=== PATIENT | female | born 1945 | race Caucasian/White ===

== ENCOUNTER 2023-05-20 05:53 | Day surgery (SDC) | payer OTHER, SELFPAY ==
[2023-05-15 07:53] VITALS: BMI 31.5
[2023-05-15 08:48] LABS: % Eosinophils 2.4 % (0-6); % Immature Granulocytes 0.3 % (0-0.5); % Lymphocytes 21.2 % (20.5-51.1); % Monocytes 7.4 % (1.7-9.3); % Neutrophils 67.7 % (42.2-75.2); Absolute Basophils 0.1 10^3/uL (0-0.2); Absolute Eosinophils 0.2 10^3/uL (0-0.7); Absolute Lymphocytes 1.5 10^3/uL (1.2-3.4); Absolute Monocytes 0.5 10^3/uL (0.1-0.6); Absolute Neutrophils 4.8 10^3/uL (1.4-6.5); Hematocrit 41.4 % (37.0-47.0); Hemoglobin 13.6 g/dL (12.0-16.0); Mean Corp Hgb Conc. 32.9 g/dL (33.0-37.0); Mean Corpuscular Hgb 28.2 pg (27.0-31.0); Mean Corpuscular Volume 85.7 fL (81.0-99.0); Mean Platelet Volume 8.7 fL (7.4-10.4); Nucleated Red Blood Cells % 0 %; Platelet Count 294 10^3/uL (130-400); Red Blood Cell Count 4.83 10^6/uL (4.20-5.40); Red Cell Dist. Width 13.5 % (11.5-14.5); White Blood Cell Count 7.1 10^3/uL (4.8-10.8)
[2023-05-15 08:52] LABS: INR 1.07
[2023-05-15 08:56] LABS: ALT (SGPT) 21 U/L (0-35); AST (SGOT) 25 U/L (14-36); Albumin 4.3 g/dl (3.5-5.0); Alkaline Phosphatase 69 U/L (38-126); Blood Urea Nitrogen 12 mg/dl (7-17); Calcium 9.9 mg/dl (8.4-10.2); Carbon Dioxide 28 mmol/L (22-30); Chloride 103 mmol/L (98-107); Estimated Creatinine Clearance 66 ml/min; Glucose 106 mg/dl (70-99); Potassium 3.7 mmol/L (3.5-5.1); Sodium 140 mmol/L (135-145); Total Bilirubin 1.6 mg/dl (0.2-1.3); Total Protein 6.6 g/dl (6.3-8.2); eGFR > 60.00
[2023-05-20] VITALS (25 sets, daily range): BP systolic 110–171; BP diastolic 53–81; BMI 29.6
--- NOTE | 2023-05-20 07:47 | ITS.CL.ABL ---
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
Ablation
Procedure Report:
ELECTROPHYSIOLOGIC STUDY AND POSSIBLE ABLATION
DATE: 05/20/23
Primary Care Provider: Dr Jonah Swift
Primary watchstander: Dr Ric Hernadez
Director Of Neurology: Jonah Patton M.D.
INDICATION:
Symptomatic Atrial Fibrillation.
Paroxysmal
HISTORY: See H and P.
Symptomatic AF, poorly controlled with attempted medical therapy.
She has paroxysmal atrial fibrillation and atrial for flutter, symptomatic despite amiodarone.
-Echocardiogram March 12, 2023 demonstrates normal left ventricular size and function with estimated ejection fraction of 60 to 65% with mild LVH and stage II diastolic dysfunction. The left atrium is noted to be severely dilated, the right
atrium is noted to be dilated and there is mild mitral regurgitation. There is moderate tricuspid regurgitation with estimated pulmonary artery pressure 41 mmHg.
�������(Of note, echocardiogram approximately 1 year earlier from February 01, 2022 demonstrated normal left atrial and right atrial sizes.)
HAS-BLED: 2
Age
History of bleeding complications (hemarthrosis knees)
CHADSVASc: 4
HTN
Age
F Gender
PRESENTING RHYTHM: Paroxysmal atrial fibrillation
ANTIARRHYTHMIC DRUG: amiodarone
ANTICOAGULATION: Apixaban
'TIME-OUT': called and confirmed.
SEDATION/ANESTHESIA: provided via the anesthesia department using general anesthesia.
INTRAVENOUS/ARTERIAL ACCESS:
Right femoral venous - 8Fr ( up-sized for Arctic Front Flex Sheath - 15 Fr)
Left femoral venous - 7 Fr, 9 Fr,
PROCEDURE:
Ultrasound Guidance performed by pa was utilized for femoral venous Vascular Access b/l.
A decapolar CS catheter was placed within the CS for mapping and pacing.
The intracardiac ultrasound catheter was positioned in the RA. No TATIANA clot was seen and the LA/PV anatomy was defined. ICE was also used to identify the FO/IAS for targeting of transseptal puncture, assist in identification of the pulmonary vein
ostia, monitoring for PV ostial balloon occlusion using Doppler flow, and to monitor for mechanical injury.
Heparin bolus was administered prior to the transseptal puncture. Transeptal puncture was completed while monitoring intracardiac ultrasound, fluoroscopy and tip pressure. Left atrial catheter position was confirmed by pressure monitoring (RA mean
pressure 6 mm Hg and LA mean pressure 8 mm Hg), as well as fluoroscopy. The sheath was advanced over the dilator and positioned in the left atrium. Heparin was infused to target ACT at 300 -400 seconds throughout the case.
The multi-pole ring mapping catheter was positioned through the sheath into the LA and then the PV ostia were mapped. The 3-D electroanatomical map was created using [employer] [employer]. A 3-D reconstructed CT image was compared to the 3-D map to assist in
anatomic interpretation, mapping and ablation. Cryothermal energy was utilized for PV isolation to electrically isolate each PV ostia using the 28 mm Arctic Front balloon. All PVPs were eliminated at each vein demonstrating entrance block.
There are four independent pulmonary veins, LSPV, LIPV, RSPV and RIPV
After ostial isolation AF persisted and additional ablation lesions at the LSPV and RSPV were required to result in wide area circumferential ablation around the pulmonary vein sets.
Due to reduction in a compound motor action potential during cryoballoon ablation at the right inferior pulmonary vein which was not associated with loss of diaphragmatic contraction, lesion durations were limited to 90 seconds x 2 lesions at the
right inferior pulmonary vein.
An esophageal temperature probe was positioned at the level of the mid LA to delineate the course of the esophagus as well as monitor for any significant temperature changes during ablation. The temperature probe was repositioned to best correlate
to the level of ablation delivery. Elijah esophageal temperature is 34.8 �C and occurred during cryo-balloon application at the left inferior pulmonary vein.
Of note, during the case both paroxysmal atrial fibrillation and paroxysmal atrial flutter were observed. During episodes of atrial flutter mapping activation as well as entrainment mapping determined the tachycardia to be counterclockwise right
atrial flutter.
Once left atrial ablation was completed, cardioversion restored sinus rhythm. Mapping of the left atrium finds wide area circumferential ablation around both pulmonary vein sets with both entrance and exit block.
Next attention was turned to the right atrial flutter. RF ablation using a 4 mm irrigated tip contact sensing catheter was performed in sinus rhythm. Energy was delivered along the cavotricuspid isthmus at approximately 6:00 in the 30 degree BELGIAN
position. During RF energy delivery split potentials were noted along the line. Upon completion of the line differential pacing finds bidirectional block across the cavotricuspid isthmus line.
I.C.E. :
Pre-Ablation Post-Ablation
LVEF: 55 % 55 %
WMA: none none
Pericardial effusion: none none
Fluoroscopic exposure : 13.2 minutes, 44 mGy
COMPLICATIONS:
None
SUMMARY:
- Mapping and ablation to isolate the PVs
- Additional AF ablation set after PVI.
- Mapping and ablation of second tachycardia (right atrial counterclockwise CTI dependent flutter)
- 3-D Electroanatomical Mapping
- Intracardiac Ultrasound
- Ultrasound Guidance for Vascular Access.
Post ablation, I discussed today's findings and results with the patient's daughter, Dayana.
RECOMMENDATIONS:
- Observe in monitored bed.
- Maintain oral anticoagulation.
- Continue amiodarone for at least 3 months. If at 3-month follow-up visit sinus rhythm has been maintained, there can be consideration for stopping amiodarone.
- Office visit with Dr Ric Hernadez in 3 months.
- Continue cardiovascular care with Dr Ric Hernadez
Copy to:
Dr Jonah Swift
Dr Ric Hernadez
[2023-05-20 08:54] LABS: ACT-LR - POC 300 Seconds (116-155)
[2023-05-20 09:15] LABS: ACT-LR - POC 351 Seconds (116-155)
[2023-05-20 09:30] LABS: ACT-LR - POC 363 Seconds (116-155)
[2023-05-20] MEDS: ZOFRAN 4 MG IV (10:35)
[2023-05-20] MEDS: NSS 500 IV ×2 (15:56)
--- NOTE | 2023-05-20 17:24 | PTCARENOTE ---
Received patient at 1700 after discharge cancelled following PVI. Patient transferred from stretcher to the bathroom and voided qs. Requested to sit oob in the chair. Bilateral groin dressings are dry and intact with strong pedal pulses. Not
experiencing any dizziness while sitting oob in the chair. Oriented to the room and plan of care. Call parish within reach, ordering dinner, IV fluids infusing at 100ml/hr. Patient in SR at this time, will continue to monitor.
[2023-05-20] MEDS: ELIQUIS 5 MG PO (17:49)
[2023-05-20] MEDS: ANESTHETIC LOZENGE 1 LOZENGE PO (20:05)
[2023-05-20] MEDS: LIPITOR 10 MG PO (22:39)
[2023-05-20] MEDS: TYLENOL 650 MG PO (22:45)
--- NOTE | 2023-05-21 02:51 | PTCARENOTE ---
She has been oob in room without any c/o of dizziness. Groin sites wnl, some ecchymosis around right groin site. Monitor showing SB-SR, 58-70. Sleeping at present.
[2023-05-21 04:02] VITALS: BP 133/85
[2023-05-21 04:58] LABS: Hematocrit 35.3 % (37.0-47.0); Hemoglobin 11.9 g/dL (12.0-16.0); Mean Corp Hgb Conc. 33.7 g/dL (33.0-37.0); Mean Corpuscular Hgb 29.1 pg (27.0-31.0); Mean Corpuscular Volume 86.3 fL (81.0-99.0); Mean Platelet Volume 8.9 fL (7.4-10.4); Platelet Count 242 10^3/uL (130-400); Red Blood Cell Count 4.09 10^6/uL (4.20-5.40); Red Cell Dist. Width 13.5 % (11.5-14.5); White Blood Cell Count 11.9 10^3/uL (4.8-10.8)
[2023-05-21 05:22] LABS: Blood Urea Nitrogen 12 mg/dl (7-17); Calcium 9.2 mg/dl (8.4-10.2); Carbon Dioxide 23 mmol/L (22-30); Chloride 108 mmol/L (98-107); Estimated Creatinine Clearance 78 ml/min; Glucose 103 mg/dl (70-99); Sodium 136 mmol/L (135-145); eGFR > 60.00
[2023-05-21 07:52] VITALS: BP 121/66
--- NOTE | 2023-05-21 08:01 | W.PN.CARDCBS ---
Addendum entered and electronically signed by Kwame Luna MD 05/21/23 10:09:
Patient seen and examined
Agree with CLEAN UP WORKER note
Agree with CLEAN UP WORKER plan
Examination
HEENT normocephalic atraumatic
Bilateral groins are clean dry and intact
JVP 6
Cor regular
Telemetry sinus rhythm
Remainder of her exam per CLEAN UP WORKER note
77 y/o, presented with symptomatic AFib/Flutter, recurrent on amiodarone, [id number]=7, maintained on eliquis. Now s/p PVI, CTI RFA. Post procedure, she had persistent dizziness despite normal blood pressures, no orthostasis. She was given IV
fluids and stabilized overnight, has had no further dizziness.
IMPRESSION:
AFib/AFlutter
s/p PVI, CTI RFA, 05/20/23
HTN
HLD
Mild MR, mod TR
Fatty liver disease
Hyperparathyroidism, s/p subtotal parathyroidectomy (2021)
multinodular goiter
PLAN:
Tele- NSR w/PAC
bilat groin sites stable
no further dizziness- likely post anesthesia, resolved with fluids, rest
BP stable overnight, oob ambulating
Eliquis restarted last night
Continue amiodarone until EP followup
BP meds held overnight- will restart this morning
followup at [facility] arranged
home today
Original Note:
Today's Communication / Plan
-
Continue eliquis, amiodarone
resume BP meds
home today
Impression / Plan
-
PCP: Jonah Swift MD
CDY: Ric Hernadez MD
77 y/o, presented with symptomatic AFib/Flutter, recurrent on amiodarone, [id number]=9, maintained on eliquis. Now s/p PVI, CTI RFA. Post procedure, she had persistent dizziness despite normal blood pressures, no orthostasis. She was given IV
fluids and stabilized overnight, has had no further dizziness.
IMPRESSION:
AFib/AFlutter
s/p PVI, CTI RFA, 05/20/23
HTN
HLD
Mild MR, mod TR
Fatty liver disease
Hyperparathyroidism, s/p subtotal parathyroidectomy (2021)
multinodular goiter
PLAN:
Tele- NSR w/PAC
bilat groin sites stable
no further dizziness- likely post anesthesia, resolved with fluids, rest
BP stable overnight, oob ambulating
Eliquis restarted last night
Continue amiodarone until EP followup
BP meds held overnight- will restart this morning
followup at [facility] arranged
home today
Progress Note - Front Office Representative
Subjective
Date of Service: May 21, 2023
Denies cp/palps/dyspnea
post op dizziness now resolved
oob ambulating
groins without pain
Objective
Labs:
05/21/23 04:08
05/21/23 04:08
Labs
Hgb 11.9 g/dL (12.0-16.0) L 05/21/23 04:08
Hct 35.3 % (37.0-47.0) L 05/21/23 04:08
Plt Count 242 10^3/uL (130-400) 05/21/23 04:08
PT 14.0 Sec (11.4-14.6) 05/15/23 08:08
INR 1.07 05/15/23 08:08
Sodium 136 mmol/L (135-145) 05/21/23 04:08
Potassium 4.0 mmol/L (3.5-5.1) 05/21/23 04:08
BUN 12 mg/dl (7-17) 05/21/23 04:08
Creatinine 0.7 mg/dL (0.6-1.0) 05/21/23 04:08
Glucose 103 mg/dl (70-99) H 05/21/23 04:08
Vital Signs and I&O:
Vital Signs
Temp Pulse Resp BP Pulse Ox
98.0 F 55 18 133/85 96
05/21/23 04:03 05/21/23 07:00 05/21/23 04:03 05/21/23 04:02 05/21/23 04:03
Vital Signs
Temp Pulse Resp BP Pulse Ox
98.0 F 55 18 133/85 96
05/21/23 04:03 05/21/23 07:00 05/21/23 04:03 05/21/23 04:02 05/21/23 04:03
Intake & Output
05/19/23 05/20/23 05/21/23 05/22/23
06:59 06:59 06:59 06:59
Intake Total 1240 / 1240
Output Total 400 / 400
Balance 840 / 840
Physical Exam
Physical Exam
AAOx3, MAEE 5/5
RRR S1 S2 no murmurs
CTA bilat, non labored
soft abd, + bs
bilat groin sites without ht/bleeding, non tender
bilat extremities w/palpable distal pulses, no edema
[2023-05-21] MEDS: NORVASC 5 MG PO (08:22)
[2023-05-21] MEDS: ELIQUIS 5 MG PO (08:22)
[2023-05-21] MEDS: PACERONE 100 MG PO (08:23)
[2023-05-21] MEDS: ANESTHETIC LOZENGE 1 LOZENGE PO (08:23)
--- NOTE | 2023-05-21 09:10 | W.DS.TRANS ---
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
-
Discharge Instructions:
Sleep Apnea Risk Low
Discharge Diagnosis/Procedures AFib/AFlutter, s/p ablation
Diet Low Cholesterol
Driving Restrictions No driving for 24 hours
Instructions:
Stand-Alone Forms: DC Instructions- Cath/EP Lab
Changes to Home Medications: No
Discharge Medications:
DC Medications w/original date entered in Mtime
uunhozlf-yxu-mprti acid 0.4 mg-lycopene 300 mcg-lutein 250 mcg tablet (Centrum Silver) 1 tab PO DAILY Supplement 11/18/18
apixaban 5 mg tablet (Eliquis) 5 mg PO BID Blood clot prevention/tx 03/08/21
atorvastatin 10 mg tablet 10 mg PO HS High cholesterol 03/08/21
xtkcpzmvavy-bynqawqfb-wpc C-Mn 750 mg-600 mg-55 mg-5 mg tablet 2 tab PO DAILY arthritis 03/08/21
olmesartan 20 mg tablet 20 mg PO HS Blood pressure 03/08/21
amiodarone 100 mg tablet (Pacerone) 100 mg PO DAILY Arrhythmia 05/11/21
ascorbic acid (vitamin C) 500 mg tablet (Vitamin C) 500 mg PO DAILY Supplement 05/11/21
cholecalciferol (vitamin D3) 25 mcg (1,000 unit) capsule (Vitamin D3) 50 mcg PO DAILY Supplement 05/11/21
melatonin 5 mg tablet 5 mg PO HS PRN sleep 05/13/23
amlodipine 5 mg tablet 5 mg PO DAILY 05/21/23
Home Medication Changes
Pending Results: No
--- NOTE | 2023-05-21 11:06 | CM ---
spoke to pt in room, she is prev indep, lives with her daughter in a 2 story home with 2 steps to enter. she denies any dc planning needs or dme's. plan isf or dc to home today.
--- NOTE | 2023-05-21 11:20 | PTCARENOTE ---
D/C instructions given to patient, verbalizes understanding. INT D/C'd, telemetry D/C'd, personal belongings packed and set home with patient. D/C to home via wc accompanied by staff.
== END 2023-05-21 11:39 | disposition home or self-care (01) ==
LOC: CATH 05:53
PROVIDERS: Nurse Practitioner; ATTENDING PHYSICIAN Internal Medicine Cardiovascular Disease; FAMILY PHYSICIAN Family Medicine; OTHER PHYSICIAN Internal Medicine Cardiovascular Disease
DX: I48.0 Paroxysmal atrial fibrillation (principal); I48.92 Unspecified atrial flutter; E78.00 Pure hypercholesterolemia, unspecified; I08.1 Rheumatic disorders of both mitral and tricuspid valves; Z86.010 Personal history of colon polyps; E04.2 Nontoxic multinodular goiter; K76.0 Fatty (change of) liver, not elsewhere classified; G47.00 Insomnia, unspecified; E21.3 Hyperparathyroidism, unspecified; Z79.01 Long term (current) use of anticoagulants; E66.9 Obesity, unspecified; Z68.31 Body mass index [BMI] 31.0-31.9, adult
CPT/HCPCS: C1766; C1893; C1894; C1730; C2630; C1892; C1733; C1759; 36415; 75572; 76937; 80048; 80053; 83735; 85025; 85027; 85347; 85610; 86850; 86900; 86901; 93005; 93655; 93656; 93657; C1760; C1769; Q9967

== ENCOUNTER → 2023-06-21 12:25 | Outpatient (REF) | payer OTHER, SELFPAY | LOC: HWRAD 12:25 | PROVIDERS: ATTENDING PHYSICIAN Family Medicine | DX: M85.80 Other specified disorders of bone density and structure, unspecified site (principal); M54.50 Low back pain, unspecified | CPT/HCPCS: 72110; 77080 ==

== ENCOUNTER → 2023-07-01 10:51 | Outpatient (REF) | payer OTHER, SELFPAY | LOC: HWRAD 10:51 | PROVIDERS: ATTENDING PHYSICIAN Family Medicine | DX: I70.0 Atherosclerosis of aorta (principal) | CPT/HCPCS: 76770 ==

== ENCOUNTER → 2023-10-02 08:32 | Outpatient (REF) | payer OTHER, SELFPAY ==
[2023-10-02 12:27] LABS: ALT (SGPT) 18 U/L (0-35); AST (SGOT) 26 U/L (14-36); Albumin 4.4 g/dl (3.5-5.0); Alkaline Phosphatase 63 U/L (38-126); Blood Urea Nitrogen 13 mg/dl (7-17); Calcium 9.7 mg/dl (8.4-10.2); Carbon Dioxide 28 mmol/L (22-30); Chloride 105 mmol/L (98-107); Glucose 95 mg/dl (70-99); Sodium 140 mmol/L (135-145); Total Bilirubin 1.8 mg/dl (0.2-1.3); Total Protein 6.6 g/dl (6.3-8.2); eGFR > 60.00
[2023-10-02 12:39] LABS: Free T4 1.14 ng/dl (0.78-2.19); Intact PTH 59.5 pg/ml (13.6-85.8); Vitamin D, 25-OH*** 58.5 ng/mL (30-80)
== END ==
LOC: HWLAB 08:32
PROVIDERS: ATTENDING PHYSICIAN Internal Medicine Endocrinology, Diabetes & Metabolism; FAMILY PHYSICIAN Family Medicine
DX: M81.0 Age-related osteoporosis without current pathological fracture (principal); E83.52 Hypercalcemia; E34.9 Endocrine disorder, unspecified; E55.9 Vitamin D deficiency, unspecified
CPT/HCPCS: 36415; 80053; 82306; 83970; 84439; 84443

== ENCOUNTER → 2023-11-22 08:02 | Outpatient (REF) | payer OTHER, SELFPAY | LOC: HWRAD 08:02 | PROVIDERS: ATTENDING PHYSICIAN Internal Medicine Endocrinology, Diabetes & Metabolism; FAMILY PHYSICIAN Family Medicine | DX: M81.0 Age-related osteoporosis without current pathological fracture (principal); E04.2 Nontoxic multinodular goiter | CPT/HCPCS: 76536 ==

== ENCOUNTER → 2024-02-11 09:49 | Outpatient (REF) | payer OTHER, SELFPAY | LOC: HWWDC 09:49 | PROVIDERS: ATTENDING PHYSICIAN Family Medicine; REFERRING PHYSICIAN Obstetrics & Gynecology | DX: Z12.31 Encounter for screening mammogram for malignant neoplasm of breast (principal) | CPT/HCPCS: 77063; 77067 ==

== ENCOUNTER → 2024-07-23 08:20 | Outpatient (REF) | payer OTHER, SELFPAY | LOC: HWRAD 08:20 | PROVIDERS: ATTENDING PHYSICIAN Obstetrics & Gynecology; FAMILY PHYSICIAN Family Medicine | DX: N95.1 Menopausal and female climacteric states (principal) | CPT/HCPCS: 76830; 76856 ==

== ENCOUNTER → 2024-08-05 09:58 | Outpatient (REF) | payer OTHER, SELFPAY ==
[2024-08-05 12:26] LABS: % Eosinophils 1.8 % (0-6); % Immature Granulocytes 0.2 % (0-0.5); % Lymphocytes 37.2 % (20.5-51.1); % Monocytes 9.1 % (1.7-9.3); % Neutrophils 50.7 % (42.2-75.2); Absolute Basophils 0.1 10^3/uL (0-0.2); Absolute Eosinophils 0.1 10^3/uL (0-0.7); Absolute Lymphocytes 1.9 10^3/uL (1.2-3.4); Absolute Monocytes 0.5 10^3/uL (0.1-0.6); Absolute Neutrophils 2.5 10^3/uL (1.4-6.5); Hematocrit 42.1 % (37.0-47.0); Hemoglobin 13.8 g/dL (12.0-16.0); Mean Corp Hgb Conc. 32.8 g/dL (33.0-37.0); Mean Corpuscular Hgb 28.6 pg (27.0-31.0); Mean Corpuscular Volume 87.3 fL (81.0-99.0); Mean Platelet Volume 9.1 fL (7.4-10.4); Nucleated Red Blood Cells % 0 %; Platelet Count 254 10^3/uL (130-400); Red Blood Cell Count 4.82 10^6/uL (4.20-5.40); Red Cell Dist. Width 13.2 % (11.5-14.5)
[2024-08-05 12:40] LABS: ALT (SGPT) 19 U/L (0-35); AST (SGOT) 26 U/L (14-36); Albumin 4.7 g/dl (3.5-5.0); Alkaline Phosphatase 69 U/L (38-126); Blood Urea Nitrogen 15 mg/dl (7-17); Calcium 9.9 mg/dl (8.4-10.2); Carbon Dioxide 29 mmol/L (22-30); Chloride 104 mmol/L (98-107); Glucose 102 mg/dl (70-99); HDL Cholesterol 54 mg/dl; LDL Cholesterol, Calculated 60 mg/dl; Potassium 4.1 mmol/L (3.5-5.1); Sodium 142 mmol/L (135-145); Total Bilirubin 1.7 mg/dl (0.2-1.3); Total Cholesterol 137 mg/dl (50-199); Total Protein 6.8 g/dl (6.3-8.2); Triglyceride 117 mg/dl (10-149); Very Low Density Lipoprotein 23 mg/dl (0-30); eGFR > 60.00
[2024-08-05 12:49] LABS: Vitamin D, 25-OH*** 55.5 ng/mL (30-80)
== END ==
LOC: HWLAB 09:58
PROVIDERS: ATTENDING PHYSICIAN Internal Medicine Endocrinology, Diabetes & Metabolism; FAMILY PHYSICIAN Family Medicine
DX: M81.0 Age-related osteoporosis without current pathological fracture (principal); E04.2 Nontoxic multinodular goiter; E55.9 Vitamin D deficiency, unspecified; E78.00 Pure hypercholesterolemia, unspecified; Z79.01 Long term (current) use of anticoagulants
CPT/HCPCS: 36415; 80053; 80061; 82306; 85025

== ENCOUNTER → 2024-09-22 20:56 | Outpatient (REF) | payer OTHER, SELFPAY | LOC: MRI 3T 20:56 | PROVIDERS: ATTENDING PHYSICIAN Family Medicine | DX: M54.32 Sciatica, left side (principal) | CPT/HCPCS: 72148 ==

== ENCOUNTER → 2025-01-06 08:06 | Outpatient (REF) | payer OTHER, SELFPAY | LOC: RAD 08:06 | PROVIDERS: ATTENDING PHYSICIAN Family Medicine | DX: R11.0 Nausea (principal); R10.84 Generalized abdominal pain; K59.09 Other constipation | CPT/HCPCS: 74177; Q9967 ==

== ENCOUNTER → 2025-01-08 09:31 | Outpatient (REF) | payer OTHER, SELFPAY ==
[2025-01-08 12:16] LABS: Urine Character Slightly Cloudy (Clear)
[2025-01-08 12:40] LABS: Urine Squamous Cell 26-30 /LPF (Few)
[2025-01-08 12:41] LABS: Urine Red Blood Cell 0-2 /HPF (0-2); Urine White Cell 60-70 /HPF (0-5)
== END ==
LOC: HWLAB 09:31
PROVIDERS: ATTENDING PHYSICIAN Family Medicine
DX: N39.0 Urinary tract infection, site not specified (principal)
CPT/HCPCS: 81003; 81015; 87077; 87086; 87186

== ENCOUNTER → 2025-01-28 09:37 | Outpatient (REF) | payer OTHER, SELFPAY ==
[2025-01-28 12:35] LABS: ALT (SGPT) 23 U/L (0-35); AST (SGOT) 29 U/L (14-36); Albumin 4.4 g/dl (3.5-5.0); Alkaline Phosphatase 66 U/L (38-126); Total Protein 7.0 g/dl (6.3-8.2)
== END ==
LOC: HWLAB 09:37
PROVIDERS: ATTENDING PHYSICIAN Internal Medicine Gastroenterology; FAMILY PHYSICIAN Family Medicine
DX: K59.00 Constipation, unspecified (principal); E80.6 Other disorders of bilirubin metabolism
CPT/HCPCS: 36415; 80076; 82784; 83516; 84443

== ENCOUNTER → 2025-03-05 09:55 | Outpatient (REF) | payer OTHER, SELFPAY | LOC: HWWDC 09:55 | PROVIDERS: ATTENDING PHYSICIAN Family Medicine | DX: Z12.31 Encounter for screening mammogram for malignant neoplasm of breast (principal) | CPT/HCPCS: 77063; 77067 ==